=== PATIENT | female | born 1955 | race Caucasian/White ===

== ENCOUNTER 2023-02-11 11:46 | Day surgery (SDC) | payer OTHER, MEDICARE ==
[2023-02-11] VITALS (12 sets, daily range): BP systolic 138–160; BP diastolic 77–87; PULSE 69–96; TEMP 98–98.5
[~2023-02-11] VITALS: Ht 167.6 cm; Wt 96.9 kg
[2023-02-11] MEDS ORDERED: PRINIVIL10 MG PO (12:53)
[2023-02-11] MEDS ORDERED: CLARITIN 1010 MG/TAB PO (12:54)
[2023-02-11] MEDS ORDERED: TYLENOL 325MG325 MG PO (12:55)
[2023-02-11] MEDS ORDERED: HCTZ12.5TAB PO (12:56)
--- NOTE | 2023-02-11 18:14 | NUR ---
Patient doing well post op. Awake & alert. reports buring in her knee. Supportive daughter at bedside. One tab pain medication with food, patient then had nausea. Prn zofran given. Right knee with cyrocuff. Dressing CDI. IVf. Scds & deborah. Will monitor
[2023-02-12 03:45] VITALS: BP 151/87; PULSE 91; TEMP 98.7
[2023-02-12 05:16] LABS: HEMATOCRIT 38.2 % (37.0-47.0); HEMOGLOBIN 12.7 g/dl (12.5-16.0)
[2023-02-12 07:37] VITALS: BP 148/81; PULSE 81; TEMP 98.2
[2023-02-12 09:28] VITALS: BP_SYST 148
--- NOTE | 2023-02-12 09:32 | NUR ---
Patient awake & alert this am. Supportive daughter at bedside. rounded, plan of care reviewed. Patient has worked with therapy & plans for discharge home this afternoon. Right knee Aquacell dressing CDI. Ar wrap for compression, patient daughter rewrapped, deborah hose to tight. aware. Int. Tolerated breakfast without nausea. Pain much better managed this am after pain medications. Will monitor
[2023-02-12 11:09] VITALS: BP 174/91; PULSE 77; TEMP 98.7
[2023-02-12 12:54] VITALS: BP_SYST 174
--- NOTE | 2023-02-12 12:58 | NUR ---
Patient resting in bed. Plans for discharge this afternoon. Tried ultram for pain, but pain still nagging. Roxicodone for better pain control for anticipation of going home. Will let her rest until daughter arrives to take her home.
--- NOTE | 2023-02-12 12:59 | NUR ---
SW met with patient to conduct care management assessment and dicuss discharge planning. Patient daughter (Brittney Arroyo [phone]) was present. Patient reports that she has been using walk[place] in [place] but does not utilize at her home. Patient shared that she is independent with ADL's and no additional DME's. Patient PCP is Dr. Chapin and pharmacy of choice is [facility] in [facility]. Patient inquired if she was d/c with leg pumps. SW confirmed with nurse that it would be going home with her. Patient is excepting to discharge back to her home pending no further medical recommendations.
--- NOTE | 2023-02-12 16:00 | NUR ---
Patient ready for discharge. Her daughter taking her home. Pain medication prior to discharge in anticipation of pain. Patient showered this afternoon, her daughter assisting, Int DC. Blood pressure improved. Vinayak Ble. All discharge education provided. Medication list reviewed. Medication safety discussed. Incisions cares & when to call provider reviewed. Ariel has follow up appt & therapy scheduled. Patient wheeled out with all belongigns
== END 2023-02-12 16:18 | disposition home or self-care (01) ==
LOC: SDCO 11:46 → SURG 17:02 → SDCO 02-12 16:18
PROVIDERS: Orthopaedic Surgery
DX: M17.11 Unilateral primary osteoarthritis, right knee (principal)
CPT/HCPCS: OP; A6197; A9284; C1713; C1776; J0690; J1100; J2250; J2405; J2704; J2795; J3010; J7120